=== PATIENT | female | born 1995 | race Caucasian/White ===

== ENCOUNTER 2017-08-24 21:26 | Inpatient (IN) | payer BC ==
[~2017-08-24] VITALS: Ht 170.2 cm; Wt 51.7 kg
[2017-08-24 21:57] VITALS: BP 101/68
[2017-08-24 22:15] LABS: BASOPHILS % (AUTO) 0.8 % (0.0-2.0); EOSINOPHILS % (AUTO) 0.6 % (0.0-3.0); HEMATOCRIT 40.8 % (37.0-47.0); LYMPHOCYTES % (AUTO) 23.1 % (20.0-45.0); MEAN CORPUSCULAR VOLUME 84 FL (80-99); MONOCYTES % (AUTO) 4.6 % (1.0-10.0); NEUTROPHILS % (AUTO) 70.8 % (45.0-75.0); PLATELET COUNT 263 K/UL (150-450); RED BLOOD COUNT 4.84 M/UL (4.20-5.40); RED CELL DISTRIBUTION WIDTH 10.8 % (11.6-14.8); WHITE BLOOD COUNT 10.7 K/UL (4.8-10.8)
[2017-08-24 22:19] LABS: ANION GAP 8 mmol/L (5-15); BLOOD UREA NITROGEN 12 mg/dL (7-18); CALCIUM 8.9 MG/DL (8.5-10.1); CARBON DIOXIDE 27 MMOL/L (21-32); CHLORIDE 105 MMOL/L (98-107); CREATININE 0.9 MG/DL (0.55-1.30); POTASSIUM 3.5 MMOL/L (3.5-5.1); SODIUM 140 MMOL/L (136-145)
[2017-08-24 22:24] LABS: ALANINE AMINOTRANSFERASE 26 U/L (12-78); ALBUMIN 3.8 G/DL (3.4-5.0); ALBUMIN/GLOBULIN RATIO 1.2 (1.0-2.7); ALKALINE PHOSPHATASE 73 U/L (46-116); ASPARTATE AMINO TRANSFERASE 18 U/L (15-37); BILIRUBIN,TOTAL 0.4 MG/DL (0.2-1.0)
--- NOTE | 2017-08-24 22:46 | Diagnostic Imaging Report ---
EXAM: CT Head Without Intravenous Contrast CLINICAL HISTORY: Seizure TECHNIQUE: Axial computed tomography images of the head/brain without intravenous contrast. CTDI is 0.15, 70.38 mGy and DLP is 1319 mGy-cm. One or more of the following dose reduction techniques were used: automated exposure control, adjustment of the mA and/or kV according to patient size, use of iterative reconstruction technique. COMPARISON: No relevant prior studies available. FINDINGS: Brain: Unremarkable. No acute hemorrhage. Normal canchola-white differentiation. No significant mass effect. Ventricles: Unremarkable. No ventriculomegaly. Bones/joints: Unremarkable. No acute fracture. Soft tissues: Unremarkable. Sinuses: Air-fluid level in the left maxillary sinus. Mastoid air cells: Unremarkable. IMPRESSION: No acute intracranial abnormality.
[2017-08-24 23:37] LABS: APPEARANCE,URINE SLIGHTLY CLOUDY; BILIRUBIN, URINE NEGATIVE (NEGATIVE); COLOR,URINE PALE YELLOW; GLUCOSE, URINE (UA) NEGATIVE (NEGATIVE); KETONES,URINE NEGATIVE (NEGATIVE); LEUKOCYTE ESTERASE ,URINE 3+ (NEGATIVE); NITRITE,URINE NEGATIVE (NEGATIVE); PH,URINE 6 (4.5-8.0); PROTEIN,URINE 1+ (NEGATIVE); UROBILINOGEN,URINE NORMAL MG/DL (0.0-1.0)
[2017-08-25] VITALS (7 sets, daily range): BP systolic 83–108; BP diastolic 44–59
[2017-08-25] MEDS ORDERED: Morphine Sulfate 4mg/ml Inj IVP ONE (00:30)
[2017-08-25] MEDS ORDERED: levETIRAcetam 500 MG in D5W 110 ML IV ONE (00:30)
--- NOTE | 2017-08-25 04:40 | Emergency Room Report ---
History of Present Illness General Chief Complaint: Seizure Source: Patient Present Illness HPI 21-year-old female presents ED for evaluation. Patient brought in by EMS status post seizure. Seizure was witnessed at her home by her friends. Friend states she fell forward and was seizing on the floor, foaming at the mouth. Lasted approximately 1 minute. Patient was initially very confused but is now more awake alert oriented. Patient denies history of seizures. States that she drank some alcohol and took some Benadryl. Denies any drug use. Patient states she has a headache, throbbing, 8 out of 10, nonradiating. Denies fevers or chills. Denies any neck stiffness. No other aggravating relieving factors. Denies any other associated symptoms Allergies: Coded Allergies: PENICILLINASE (Verified Allergy, Unknown, 08/24/17) Patient History Past Medical History: asthma Past Surgical History: none Pertinent Family History: none Social History: Denies: smoking, alcohol use, drug use Now: No Immunizations: UTD Reviewed Nursing Documentation: PMH: Agreed; PSxH: Agreed Nursing Documentation-PMH Past Medical History: No History, Except For Hx Cardiac Problems: No Hx Asthma: Yes Hx Cancer: No Hx Gastrointestinal Problems: No Hx Neurological Problems: No Hx Seizures: No Review of Systems All Other Systems: negative except mentioned in HPI Physical Exam Vital Signs Date Time Temp Pulse Resp B/P (MAP) Pulse Ox O2 Delivery O2 Flow Rate FiO2 08/24/17 21:26 98.1 98 18 102/69 99 Room Air 98.1 Sp02 EP Interpretation: reviewed, normal General Appearance: no apparent distress, alert, GCS 15, non-toxic Head: normocephalic, atraumatic Eyes: bilateral eye normal inspection, bilateral eye PERRL ENT: hearing grossly normal, normal pharynx, no angioedema, normal voice Neck: full range of motion, supple/symm/no masses Respiratory: chest non-tender, lungs clear, normal breath sounds, speaking full sentences Cardiovascular #1: regular rate, rhythm, no edema Cardiovascular #2: 2+ carotid (R), 2+ carotid (L), 2+ radial (R), 2+ radial (L) , 2+ dorsalis pedis (R), 2+ dorsalis pedis (L) Gastrointestinal: normal bowel sounds, non tender, soft, non-distended, no guarding, no rebound Rectal: deferred Genitourinary: normal inspection, no CVA tenderness Musculoskeletal: back normal, gait/station normal, normal range of motion, non- tender Neurologic: alert, oriented x3, responsive, motor strength/tone normal, sensory intact, speech normal Psychiatric: judgement/insight normal, memory normal, mood/affect normal, no suicidal/homicidal ideation Reflexes: 3+ bicep (R), 3+ bicep (L), 3+ tricep (R), 3+ tricep (L), 3+ knee (R) , 3+ knee (L) Skin: normal color, no rash, warm/dry, well hydrated Lymphatic: no adenopathy Medical Decision Making Diagnostic Impression: Primary Impression: New onset seizure Additional Impression: UTI (urinary tract infection) Qualified Codes: N39.0 - Urinary tract infection, site not specified ER Course Hospital Course 21-year-old F presents to ED status post seizure. Differential diagnosis includes- breakthrough seizure, alcohol abuse, noncompliance with medication Clinical course Patient placed on stretcher. Initial history and physical I ordered labs, IV fluids, CT brain Labs-electrolytes okay, leukocytosis noted, hemoglobin/hematocrit stable. UA + bacteria, Utox engative EKG - NSR, no acute ischemic changes interpreted by me CT Brain ok I discussed findings with patient. She states that there is a family history of epilepsy. Patient states she feels very weak still still has a headache. Given loading dose of Keppra. given IV abx Case discussed with Dr. Baird and he agreed to accept the patient to his service for further care and support. i. I feel this is a highly complex case requiring extensive working including EKG/Rhythm strip, Xray/CT/US, Blood/urine lab work, repeat exams while in ED, and administration of strong opiates/narcotics for pain control, admission to hospital or close patient follow up. Diagnosis - new onset seizure, UTI admitted to telemetry in serious condition Labs Test 08/24/17 21:40 08/24/17 23:15 White Blood Count 10.7 K/UL (4.8-10.8) Red Blood Count 4.84 M/UL (4.20-5.40) Hemoglobin 14.0 G/DL (12.0-16.0) Hematocrit 40.8 % (37.0-47.0) Mean Corpuscular Volume 84 FL (80-99) Mean Corpuscular Hemoglobin 29.0 PG (27.0-31.0) Mean Corpuscular Hemoglobin Concent 34.4 G/DL (32.0-36.0) Red Cell Distribution Width 10.8 % (11.6-14.8) Platelet Count 263 K/UL (150-450) Mean Platelet Volume 7.1 FL (6.5-10.1) Neutrophils (%) (Auto) 70.8 % (45.0-75.0) Lymphocytes (%) (Auto) 23.1 % (20.0-45.0) Monocytes (%) (Auto) 4.6 % (1.0-10.0) Eosinophils (%) (Auto) 0.6 % (0.0-3.0) Basophils (%) (Auto) 0.8 % (0.0-2.0) Sodium Level 140 MMOL/L (136-145) Potassium Level 3.5 MMOL/L (3.5-5.1) Chloride Level 105 MMOL/L (98-107) Carbon Dioxide Level 27 MMOL/L (21-32) Anion Gap 8 mmol/L (5-15) Blood Urea Nitrogen 12 mg/dL (7-18) Creatinine 0.9 MG/DL (0.55-1.30) Estimat Glomerular Filtration Rate > 60 mL/min (>60) Glucose Level 89 MG/DL (74-106) Calcium Level 8.9 MG/DL (8.5-10.1) Total Bilirubin 0.4 MG/DL (0.2-1.0) Aspartate Amino Transf (AST/SGOT) 18 U/L (15-37) Alanine Aminotransferase (ALT/SGPT) 26 U/L (12-78) Alkaline Phosphatase 73 U/L (46-116) Total Protein 6.9 G/DL (6.4-8.2) Albumin 3.8 G/DL (3.4-5.0) Globulin 3.1 g/dL Albumin/Globulin Ratio 1.2 (1.0-2.7) Salicylates Level 0.4 ug/mL (2.8-20) Acetaminophen Level < 2 MCG/ML (10-30) Serum Alcohol < 3 mg/dL Urine Color Pale yellow Urine Appearance Slightly cloudy Urine pH 6 (4.5-8.0) Urine Specific [place] 1.015 (1.005-1.035) Urine Protein 1+ (NEGATIVE) Urine Glucose (UA) Negative (NEGATIVE) Urine Ketones Negative (NEGATIVE) Urine Occult Blood 2+ (NEGATIVE) Urine Nitrite Negative (NEGATIVE) Urine Bilirubin Negative (NEGATIVE) Urine Urobilinogen Normal MG/DL (0.0-1.0) Urine Leukocyte Esterase 3+ (NEGATIVE) Urine RBC 2-4 /HPF (0 - 2) Urine WBC 15-20 /HPF (0 - 2) Urine Squamous Epithelial Cells Moderate /LPF (NONE/OCC) Urine Bacteria Few /HPF (NONE) Urine Yeast Few /HPF (NONE) Urine HCG, Qualitative Negative (NEGATIVE) Urine Opiates Screen Negative (NEGATIVE) Urine Barbiturates Screen Negative (NEGATIVE) Phencyclidine (PCP) Screen Negative (NEGATIVE) Urine Amphetamines Screen Negative (NEGATIVE) Urine Benzodiazepines Screen Negative (NEGATIVE) Urine Cocaine Screen Negative (NEGATIVE) Urine Marijuana (THC) Screen Negative (NEGATIVE) EKG Diagnostic Results Rate: normal Rhythm: NSR ST Segments: no acute changes ASA given to the pt in ED: No Rhythm Strip Diag. Results EP Interpretation: yes Rhythm: NSR, no PVC's, no ectopy CT/MRI/US Diagnostic Results CT/MRI/US Diagnostic Results : Imaging Test Ordered: CT Head Impression no acute process Last Vital Signs Date Time Temp Pulse Resp B/P (MAP) Pulse Ox O2 Delivery O2 Flow Rate FiO2 08/25/17 02:30 98.1 79 15 94/59 99 Room Air 98.1 Status: improved Disposition: ADMITTED INPATIENT Condition: Serious Scripts No Active Prescriptions or Reported Meds Referrals: NON PHYSICIAN (PCP) aSroj Aguila MD August 25, 2017 04:40
[2017-08-25] MEDS ORDERED: Gadavist 7.5mMol/7.5ml vial IV PRN (06:45)
[2017-08-25 08:33] LABS: BASOPHILS % (AUTO) 0.4 % (0.0-2.0); EOSINOPHILS % (AUTO) 0.8 % (0.0-3.0); HEMATOCRIT 35.4 % (37.0-47.0); HEMOGLOBIN 11.9 G/DL (12.0-16.0); LYMPHOCYTES % (AUTO) 20.1 % (20.0-45.0); MEAN CORPUSCULAR VOLUME 86 FL (80-99); NEUTROPHILS % (AUTO) 72.7 % (45.0-75.0); PLATELET COUNT 226 K/UL (150-450); RED CELL DISTRIBUTION WIDTH 11.1 % (11.6-14.8); WHITE BLOOD COUNT 11.8 K/UL (4.8-10.8)
[2017-08-25 08:51] LABS: ALANINE AMINOTRANSFERASE 20 U/L (12-78); ALBUMIN 3.1 G/DL (3.4-5.0); ALBUMIN/GLOBULIN RATIO 1.2 (1.0-2.7); ALKALINE PHOSPHATASE 63 U/L (46-116); ANION GAP 5 mmol/L (5-15); ASPARTATE AMINO TRANSFERASE 16 U/L (15-37); BILIRUBIN,TOTAL 0.5 MG/DL (0.2-1.0); BLOOD UREA NITROGEN 13 mg/dL (7-18); CALCIUM 8.5 MG/DL (8.5-10.1); CARBON DIOXIDE 28 MMOL/L (21-32); CHLORIDE 109 MMOL/L (98-107); CREATININE 0.8 MG/DL (0.55-1.30); POTASSIUM 3.6 MMOL/L (3.5-5.1); SODIUM 142 MMOL/L (136-145)
[2017-08-25] MEDS: Heparin 5000 units/ml inj SUBQ SCH ×3 (09:00→20:10)
[2017-08-25] MEDS: Cefepime HCl 1 GM in D5W 110 ML IVPB SCH ×2 (09:22→20:13)
--- NOTE | 2017-08-25 10:23 | History & Physical ---
History and Physical History & Physicial 21-year-old female presents with status post seizure. Seizure was witnessed at her home by her friends. Friend states she fell forward and was seizing on the floor, foaming at the mouth. Lasted approximately 1 minute. Patient was initially very confused but regained normal LOC. Patient denies history of seizures. States that she drank some alcohol and took some Benadryl that night. she has a headache, throbbing, 8 out of 10, nonradiating in the ER and persists. Denies fevers or chills. Denies any neck stiffness. No other aggravating relieving factors. Denies any other associated symptoms Allergies: PENICILLINASE (Verified Allergy, Unknown, 08/24/17) Past Medical History: asthma Past Surgical History: none Pertinent Family History: none Social History: Denies: smoking, alcohol use, drug use Reviewed of systems: otherwise negative Physical WDWN NAD clear breath sounds bilaterally without rhonchi or wheeze [id number] without MRG NABS nontender no HSM no CCE nonfocal Laboratory Tests Test 08/24/17 21:40 08/24/17 23:15 08/25/17 08:10 White Blood Count 10.7 K/UL (4.8-10.8) 11.8 K/UL (4.8-10.8) H Red Blood Count 4.84 M/UL (4.20-5.40) 4.10 M/UL (4.20-5.40) L Hemoglobin 14.0 G/DL (12.0-16.0) 11.9 G/DL (12.0-16.0) L Hematocrit 40.8 % (37.0-47.0) 35.4 % (37.0-47.0) L Mean Corpuscular Volume 84 FL (80-99) 86 FL (80-99) Mean Corpuscular Hemoglobin 29.0 PG (27.0-31.0) 29.2 PG (27.0-31.0) Mean Corpuscular Hemoglobin Concent 34.4 G/DL (32.0-36.0) 33.8 G/DL (32.0-36.0) Red Cell Distribution Width 10.8 % (11.6-14.8) L 11.1 % (11.6-14.8) L Platelet Count 263 K/UL (150-450) 226 K/UL (150-450) Mean Platelet Volume 7.1 FL (6.5-10.1) 7.3 FL (6.5-10.1) Neutrophils (%) (Auto) 70.8 % (45.0-75.0) 72.7 % (45.0-75.0) Lymphocytes (%) (Auto) 23.1 % (20.0-45.0) 20.1 % (20.0-45.0) Monocytes (%) (Auto) 4.6 % (1.0-10.0) 6.0 % (1.0-10.0) Eosinophils (%) (Auto) 0.6 % (0.0-3.0) 0.8 % (0.0-3.0) Basophils (%) (Auto) 0.8 % (0.0-2.0) 0.4 % (0.0-2.0) Sodium Level 140 MMOL/L (136-145) 142 MMOL/L (136-145) Potassium Level 3.5 MMOL/L (3.5-5.1) 3.6 MMOL/L (3.5-5.1) Chloride Level 105 MMOL/L (98-107) 109 MMOL/L (98-107) H Carbon Dioxide Level 27 MMOL/L (21-32) 28 MMOL/L (21-32) Anion Gap 8 mmol/L (5-15) 5 mmol/L (5-15) Blood Urea Nitrogen 12 mg/dL (7-18) 13 mg/dL (7-18) Creatinine 0.9 MG/DL (0.55-1.30) 0.8 MG/DL (0.55-1.30) Estimat Glomerular Filtration Rate > 60 mL/min (>60) > 60 mL/min (>60) Glucose Level 89 MG/DL (74-106) 84 MG/DL (74-106) Calcium Level 8.9 MG/DL (8.5-10.1) 8.5 MG/DL (8.5-10.1) Total Bilirubin 0.4 MG/DL (0.2-1.0) 0.5 MG/DL (0.2-1.0) Aspartate Amino Transf (AST/SGOT) 18 U/L (15-37) 16 U/L (15-37) Alanine Aminotransferase (ALT/SGPT) 26 U/L (12-78) 20 U/L (12-78) Alkaline Phosphatase 73 U/L (46-116) 63 U/L (46-116) Total Protein 6.9 G/DL (6.4-8.2) 5.7 G/DL (6.4-8.2) L Albumin 3.8 G/DL (3.4-5.0) 3.1 G/DL (3.4-5.0) L Globulin 3.1 g/dL 2.6 g/dL Albumin/Globulin Ratio 1.2 (1.0-2.7) 1.2 (1.0-2.7) Salicylates Level 0.4 ug/mL (2.8-20) L Acetaminophen Level < 2 MCG/ML (10-30) L Serum Alcohol < 3 mg/dL Urine Color Pale yellow Urine Appearance Slightly cloudy Urine pH 6 (4.5-8.0) Urine Specific [place] 1.015 (1.005-1.035) Urine Protein 1+ (NEGATIVE) H Urine Glucose (UA) Negative (NEGATIVE) Urine Ketones Negative (NEGATIVE) Urine Occult Blood 2+ (NEGATIVE) H Urine Nitrite Negative (NEGATIVE) Urine Bilirubin Negative (NEGATIVE) Urine Urobilinogen Normal MG/DL (0.0-1.0) Urine Leukocyte Esterase 3+ (NEGATIVE) H Urine RBC 2-4 /HPF (0 - 2) H Urine WBC 15-20 /HPF (0 - 2) H Urine Squamous Epithelial Cells Moderate /LPF (NONE/OCC) H Urine Bacteria Few /HPF (NONE) Urine Yeast Few /HPF (NONE) H Urine HCG, Qualitative Negative (NEGATIVE) Urine Opiates Screen Negative (NEGATIVE) Urine Barbiturates Screen Negative (NEGATIVE) Phencyclidine (PCP) Screen Negative (NEGATIVE) Urine Amphetamines Screen Negative (NEGATIVE) Urine Benzodiazepines Screen Negative (NEGATIVE) Urine Cocaine Screen Negative (NEGATIVE) Urine Marijuana (THC) Screen Negative (NEGATIVE) IMPRESSION new onset seizure asthma PLAN keppra EEG MRI brain seizure precautions impression, plan, and exam edited and reviewed in detail care discussed with Edmond Powell MD August 25, 2017 10:23
[2017-08-25] MEDS ORDERED: Tubing IV Secondary IV ONE (15:31)
--- NOTE | 2017-08-25 15:45 | Diagnostic Imaging Report ---
EXAM: MR Head Without and With Intravenous Contrast CLINICAL HISTORY: SZ TECHNIQUE: Magnetic resonance images of the head/brain without and with intravenous contrast in multiple planes. COMPARISON: CT head 08/24/17 FINDINGS: Brain: A few scattered right frontal white matter T2 hyperintensities are nonspecific. No other abnormal signal. No hemorrhage. No acute infarct. No mass or fluid collections. No abnormal enhancement. Ventricles: Unremarkable. No ventriculomegaly. Bones/joints: Unremarkable. Sinuses: Small fluid level in the left maxillary sinus. May be acute sinusitis. Mastoid air cells: Unremarkable as visualized. No mastoid effusion. Orbits: Unremarkable as visualized. IMPRESSION: 1. A few scattered right frontal white matter T2 hyperintensities are nonspecific and likely of no clinical significance. 2. No acute intracranial abnormality. 3. Small fluid level in the left maxillary sinus. May be acute sinusitis.
[2017-08-26] VITALS: BP_SYST 82; BP_SYST 92; BP_DIAS 47; BP_DIAS 53
[2017-08-26 04:00] VITALS: BP 94/53
[2017-08-26] MEDS: Norco 5mg/325mg tab ORAL PRN ×3 (05:48→20:36)
--- NOTE | 2017-08-26 07:10 | General Progress Note ---
Assessment/Plan Assessment/Plan IMPRESSION new onset seizure possible due to etoh and benadryl use asthma headaches sinusitis PLAN keppra as is EEG MRI brain noted seizure precautions NO DRIVING WILL SEND LETTER TO [facility] AND WILL NEED TO SEE NEURO PRIOR TO RESUMPTION OF DRIVING impression, plan, and exam edited and reviewed in detail care discussed with RN Subjective Allergies: Coded Allergies: PENICILLINASE (Verified Allergy, Unknown, 08/24/17) Subjective persistent headaches no seizure MRI negative Objective Last 24 Hour Vital Signs Date Time Temp Pulse Resp B/P (MAP) Pulse Ox O2 Delivery O2 Flow Rate FiO2 08/26/17 06:47 98.1 08/26/17 05:48 98.1 08/26/17 04:00 64 08/26/17 04:00 97.5 69 18 94/53 98 Room Air 97.5 08/26/17 01:18 98.1 08/26/17 00:19 98.1 08/26/17 00:00 64 08/26/17 00:00 96.8 71 21 82/47 98 Room Air 96.8 08/25/17 20:00 80 08/25/17 20:00 98.1 73 20 95/58 97 Room Air 98.1 08/25/17 16:00 61 08/25/17 16:00 97.5 61 18 91/52 95 Room Air 97.5 08/25/17 12:00 79 08/25/17 12:00 97.9 82 18 92/53 95 Room Air 97.9 08/25/17 08:00 63 08/25/17 08:00 97.4 66 18 83/51 98 Room Air 97.4 Intake and Output 08/25/17 08/26/17 19:00 07:00 Intake Total 480 ml 120 ml Balance 480 ml 120 ml Intake Oral 480 ml 120 ml # Voids 4 1 Laboratory Tests 08/25/17 08:10: White Blood Count 11.8H, Red Blood Count 4.10L, Hemoglobin 11.9L, Hematocrit 35.4L, Mean Corpuscular Volume 86, Mean Corpuscular Hemoglobin 29.2, Mean Corpuscular Hemoglobin Concent 33.8, Red Cell Distribution Width 11.1L, Platelet Count 226, Mean Platelet Volume 7.3, Neutrophils (%) (Auto) 72.7, Lymphocytes (%) (Auto) 20.1, Monocytes (%) (Auto) 6.0, Eosinophils (%) (Auto) 0.8, Basophils (%) (Auto) 0.4, Sodium Level 142, Potassium Level 3.6, Chloride Level 109H, Carbon Dioxide Level 28, Anion Gap 5, Blood Urea Nitrogen 13, Creatinine 0.8, Estimat Glomerular Filtration Rate > 60, Glucose Level 84, Calcium Level 8.5, Total Bilirubin 0.5, Aspartate Amino Transf (AST/SGOT) 16, Alanine Aminotransferase (ALT/SGPT) 20, Alkaline Phosphatase 63, Total Protein 5.7L, Albumin 3.1L, Globulin 2.6, Albumin/Globulin Ratio 1.2 Height (Feet): 5 Height (Inches): 7.00 Weight (Pounds): 114 Objective WDWN NAD clear breath sounds bilaterally without rhonchi or wheeze [id number] without MRG NABS nontender no HSM no CCE nonfocal alert and oriented x 3 Edmond Baird MD August 26, 2017 07:10
[2017-08-26 08:00] VITALS: BP 96/59
[2017-08-26] MEDS: Cefepime HCl 1 GM in D5W 110 ML IVPB SCH ×2 (08:43→21:17)
[2017-08-26] MEDS: Heparin 5000 units/ml inj SUBQ SCH ×2 (08:48→21:00)
[2017-08-26 12:00] VITALS: BP 98/60
--- NOTE | 2017-08-26 14:31 | Consultation ---
Consult Note Consult Note NEUROLOGY CONSULTATION: Full note dictated #[id number] 21 y/o, RH, CF with PH of ovarian cysts, asthma and anxiety for which she takes Xanax daily. 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 She was then confused for a few minutes. She was brought to the [facility] ER and has since been admitted. ON EXAM: Normal. IMPRESSION: New onset single GTC seizure with no aura. CT of brain Normal MRI of brain WO/W contrast Normal. EEG normal in awake/drowsy/Sleep states. Labs with acute UTI. Possible single provoked seizure due to multiple factors. Cardiac monitoring has revealed questionable arrhythmia. REC: Seizure hygiene. Anti-seizure medicine not indicated at this time. Cardiac evaluation. If D/C follow up in office in 6-8 weeks. Yanira Rogers M.D., M.S.P.H. YANIRA ROGERS August 26, 2017 14:31
[2017-08-26 16:00] VITALS: BP 93/54
--- NOTE | 2017-08-26 16:45 | Electroencephalogram ---
DATE OF PROCEDURE: 08/25/2017 EEG REPORT HISTORY: This EEG was performed on a 21-year-old lady with a history of new onset single generalized seizure. The purpose of this EEG was to evaluate the patient for the type of seizure disorder. TECHNICAL NOTE: This EEG was performed on a Head Held High Digital Acquisition Unit with electrodes placed on the scalp according to the International 10-20 system. [id number] and [id number] montages were used. The EEG was technically satisfactory and was performed in the awake, drowsy and sleep states. OBSERVATIONS: In the best awake state, the background activity consisted of 9-10 Hz, posteriorly predominant, well-developed, alpha waveforms, which attenuated on eye opening. Drowsiness was characterized by dissolution of the alpha rhythm and the appearance of slow frequencies in the 4-5 Hz theta range. Stage II sleep was characterized by further slowing of the background in the delta and theta range, the presence of vertex waves, and 16 Hz sleep spindles. Photic stimulation was performed at various different frequencies and produced a normal driving response. Hyperventilation was performed for 2.5 minutes with a relatively good effort and produced no abnormalities. No focal abnormalities or epileptiform discharges were seen. IMPRESSION: Normal awake, drowsy, and stage II sleep EEG. COMMENT: A normal EEG does not rule out a seizure disorder. Solitario Rogers M.D., M.S.P.H. DR: DEREK JOB#: [id number] [facility]
--- NOTE | 2017-08-26 18:00 | Consultation ---
DATE OF CONSULTATION: 08/26/2017 NEUROLOGY CONSULTATION CONSULTING PHYSICIAN: Solitario Rogers M.D. REQUESTING PHYSICIAN: Edmond Baird M.D. HISTORY: Ms. Kathryn Caldera is a 21-year-old, right-handed, lady, who does have a past history of ovarian cysts with the last time that a cyst ruptured approximately 7 months ago, asthma and anxiety for which she takes Xanax daily. She had stopped taking her Xanax for approximately 2 days. 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 When approximately an hour after that, she suddenly became unresponsive, loss consciousness, fell down, had generalized jerking movements of her body lasting for about a minute, and had "foaming at the mouth" and had bitten her tongue. Following that, she regained consciousness within a few minutes, but was confused and disoriented for a few more minutes. She was brought into the [facility] Emergency Room and has since been admitted. She has had no further episodes of loss of consciousness or seizures since then and feels relatively well at this point in time. She denies any weakness on one side or the other, numbness on one side or the other, problems with speech, problems with language, problems with vision, problems with memory, or any other neurological symptoms following the event. She also denies any unusual symptoms prior to that. She denies a prior history of seizures. PAST MEDICAL HISTORY: Significant for ovarian cyst, asthma, and anxiety. FAMILY HISTORY: Nothing significant with no family history of neurological illnesses, except for her grandmother, who had a seizure disorder, which is poorly described. PERSONAL HISTORY: Home: She lives with a roommate. Work: She works as a model and writes and performs music. Habits: She smokes a few cigarettes daily. She consumes approximately 2 alcoholic drinks in a week. She denies the use of any illicit drugs. MEDICATIONS PRIOR TO ADMISSION: Xanax, which she had missed for 2 days and Benadryl p.r.n. PHYSICAL EXAMINATION: GENERAL: She is a well-developed, well-nourished, pleasant, lady, lying in bed, in no acute distress. VITAL SIGNS: Pulse 68 per minute, blood pressure 98/60mmHg, respirations 18 per minute, and temperature 97.9 degrees Fahrenheit. HEAD: Normocephalic and atraumatic. EENT: Examination benign except for bite vasquez on the lateral aspect of her tongue on the left side. NECK: No neck rigidity was observed. NEUROLOGIC EXAMINATION: MENTAL STATUS EXAMINATION: She was awake and alert. She was oriented to person, place, and time. She was able to recall 3/3 words immediately after 1 minute and after 3 minutes. She was able to remember presidents, Trump and Obama, but could not remember presidents prior to that. Her mathematical skills were good. Her visuospatial function was preserved. SPEECH: She had no dysarthria. LANGUAGE: She had no aphasia. CRANIAL NERVE EXAMINATION: II: The visual dominique were intact on confrontation testing. III, IV & : External ocular movements are full and the pupils 3 mm in diameter, equal, round, regular, and reactive to light. V: She had normal facial sensations and the temporales, masseters, and pterygoids functioned normally. VII: She had normal facial expressions and no facial asymmetry. VIII: She was able to hear well bilaterally and had no nystagmus. IX: The palate moved symmetrically on phonation. X: She had no hoarseness of voice. XI: The sternocleidomastoids and trapezii functioned normally. XII: The tongue was in the midline without any fasciculations or atrophy. MOTOR SYSTEM: The tone was normal in all four extremities. Examination of muscle mass revealed no focal wasting. Examination of power revealed grade 5/5 power. SENSORY EXAMINATION: She had intact sensations to pinprick, light touch, and graphesthesia. COORDINATION: She performed well on fzmmcd-cc-qins and cric-hu-auxw testing. The Romberg test was negative. REFLEXES: 2+ and bilaterally symmetrical at the biceps, triceps, brachioradialis, and ankles. 2++ at both knees. Her plantar responses were flexor bilaterally. STANCE: She had a normal stance. GAIT: She had a normal regular gait. DIAGNOSTIC IMPRESSION: 1. Ms. Kathryn Caldera is a 21-year-old, right-handed, lady, who does have a past history of ovarian cyst, asthma and anxiety for which she takes Xanax regularly. 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 This was not preceded by any aura. 2. On neurological examination, at this time, she does have mild problems with memory, but no other neurological dysfunction. 3. Her latest laboratory data revealed that her WBC count is elevated to 11,800. She is mildly anemic with a hemoglobin of 11.9. Her chemistry panel is relatively benign. Her urinalysis reveals 3+ leukocyte esterase, 2-4 red blood cells, and 15-20 white blood cells per high-power field, and her urine toxicology screen is negative and her serum alcohol level is also <3. 4. A CT scan of the brain without contrast was normal. 5. An MRI scan of the brain without and with gadolinium was also normal. 6. An EEG performed on 08/25/2017 was normal in the awake, drowsy, and sleep states. 7. The patient's history, neurological examination, imaging studies, EEG, and laboratory data are most compatible with a possible single provoked seizure due to a multitude of factors including stopping the use of Xanax, using alcohol and Benadryl, having a urinary tract infection and being under an undue amount of stress. 8. Since the patient has been in the hospital, her cardiac monitoring has revealed some questionable arrhythmia RECOMMENDATIONS: 1. Agree with management thus far. 2. The patient was given an explanation of the above mentioned findings. 3. She was instructed on the essentials of seizure hygiene: That is getting enough sleep, eating at regular intervals, not getting dehydrated, staying away from all alcohol and illicit drugs, and taking care of any infectious process as soon as it starts. 4. At this point in time, there is no indication to start the patient on an antiseizure medicine. 5. The patient's possible cardiac arrhythmia should be evaluated by entry level project engineer. 6. I would like to see the patient in followup in my office in approximately 6 to 8 weeks from now. Thank you for entrusting me with the care of Ms. Caldera I shall follow her with you. Solitario K. Sue, M.D., M.S.P.H. DR: DEREK JOB#: [id number] MTDD
--- NOTE | 2017-08-26 19:45 | Consultation ---
DATE OF CONSULTATION: 08/26/2017 CARDIOLOGY CONSULTATION NOTE CONSULTING PHYSICIAN: Chad Lentz M.D. REASON FOR CONSULTATION: Heart block. HISTORY OF PRESENT ILLNESS: This 21-year-old female has no prior history of cardiovascular disease. She presented to the emergency room early yesterday after a seizure episode. The patient apparently takes Xanax daily for anxiety. She missed two days of her medication, was under a lot of stress, consumed a shot of alcohol and took several Benadryl tablets. She developed unresponsive state falling forward with generalized jerky movements for about a minute with foaming at the mouth. She also bit her tongue. She had some postictal confusion. She was admitted yesterday and has not had any recurrent seizures. Her workup today includes a CT of the brain and MRI of the brain, both normal. EEG normal. Labs only notable for urinary tract infection. However, of cardiac concern is that while being monitored, she had one episode of a second-degree heart block type 1 (Wenckebach), this was asymptomatic. PAST MEDICAL HISTORY: Ovarian cyst, asthma, and anxiety. MEDICATIONS: Prior to admission, reviewed and reconciled. ALLERGIES: Penicillin. SOCIAL HISTORY: Denies smoking, alcohol abuse, or substance abuse. FAMILY HISTORY: Noncontributory. REVIEW OF SYSTEMS: Otherwise negative. PHYSICAL EXAMINATION: GENERAL: Well developed, well nourished, in no distress. VITAL SIGNS: Blood pressure 93/54, pulse 74, respirations 18, afebrile, room air oxygen sats are 100%. NECK: Supple. LUNGS: Clear. CARDIAC: Regular. Normal S1 and S2 with no murmur. ABDOMEN: Soft. EXTREMITIES: No edema. DIAGNOSTIC DATA: EKG revealed sinus rhythm and no abnormalities. IMPRESSION: 1. Seizure disorder with no recurrence. Per neurologist, likely due to withdrawal of benzodiazepine and associated medications ingested. 2. Asymptomatic single episode of second-degree type 1 atrioventricular block. PLAN: Check echocardiogram with bubble study. If no signs of structural heart disease, then no additional cardiovascular workup is required. Chad Lentz M.D. DR: Lois JOB#: [id number] CC:
[2017-08-26 19:53] VITALS: BP 99/55
[2017-08-27] VITALS: BP 92/53
[2017-08-27 04:00] VITALS: BP 94/55
[2017-08-27 08:00] VITALS: BP 95/57
--- NOTE | 2017-08-27 08:16 | General Progress Note ---
Assessment/Plan Assessment/Plan IMPRESSION new onset seizure possible due to etoh and benadryl use asthma headaches sinusitis PLAN dc keshira seizure precautions cleared by neuro with outpatient follow up impression, plan, and exam edited and reviewed in detail care discussed with RN Subjective Allergies: Coded Allergies: PENICILLINASE (Verified Allergy, Unknown, 08/24/17) Subjective some headaches no seizure activity MRI negative Objective Last 24 Hour Vital Signs Date Time Temp Pulse Resp B/P (MAP) Pulse Ox O2 Delivery O2 Flow Rate FiO2 08/27/17 04:00 60 08/27/17 04:00 97.0 72 20 94/55 98 Room Air 97.0 08/27/17 00:00 97.5 76 20 92/53 98 Room Air 97.5 08/27/17 00:00 63 08/26/17 23:22 97.9 08/26/17 22:23 97.9 08/26/17 21:35 97.9 08/26/17 20:00 79 08/26/17 19:53 97.9 75 20 99/55 98 Room Air 97.9 08/26/17 16:00 97.9 74 18 93/54 100 Room Air 97.9 08/26/17 16:00 110 08/26/17 12:00 97.9 68 18 98/60 97 Room Air 97.9 08/26/17 12:00 79 Intake and Output 08/26/17 08/27/17 19:00 07:00 Intake Total 1071 ml Balance 1071 ml Intake Oral 360 ml IV Total 711 ml # Voids 3 3 Height (Feet): 5 Height (Inches): 7.00 Weight (Pounds): 114 Objective WDWN NAD clear breath sounds bilaterally without rhonchi or wheeze [id number] without MRG NABS nontender no HSM no CCE nonfocal alert and oriented x 3 Edmond Baird MD August 27, 2017 08:16
[2017-08-27] MEDS: Heparin 5000 units/ml inj SUBQ SCH (08:29)
[2017-08-27] MEDS: Cefepime HCl 1 GM in D5W 110 ML IVPB SCH (08:29)
[2017-08-27 09:07] VITALS: BP 95/57
--- NOTE | 2017-08-27 09:10 | Neurology Progress Note ---
Interim History Interim History Interim History Ms. Caldera feels well. She had had no further seizures. The mind is clear. The strength is excellent. She slept well last night. She has not noticed any new neurologic symptoms. She is eager to go home. Review of Systems Neuro Review of Systems Benign. Objective Physical Exam Last Vital Signs Date Time Temp Pulse Resp B/P (MAP) Pulse Ox O2 Delivery O2 Flow Rate FiO2 08/27/17 04:00 60 08/27/17 04:00 97.0 20 94/55 98 Room Air 97.0 Neurologic Exam Objective PHYSICAL EXAMINATION: GENERAL: She is a well-developed, well-nourished, pleasant, lady, lying in bed, in no acute distress. HEAD: Normocephalic and atraumatic. EENT: Examination benign except for bite vasquez on the lateral aspect of her tongue on the left side. NECK: No neck rigidity was observed. NEUROLOGIC EXAMINATION: MENTAL STATUS EXAMINATION: She was awake and alert. She was oriented to person, place, and time. She was able to recall 3/3 words immediately after 1 minute and after 3 minutes. She was able to remember presidents, Trump and Obama, but could not remember presidents prior to that. Her mathematical skills were good. Her visuospatial function was preserved. SPEECH: She had no dysarthria. LANGUAGE: She had no aphasia. CRANIAL NERVE EXAMINATION: II: The visual dominique were intact on confrontation testing. III, IV & : External ocular movements are full and the pupils 3 mm in diameter, equal, round, regular, and reactive to light. V: She had normal facial sensations and the temporales, masseters, and pterygoids functioned normally. VII: She had normal facial expressions and no facial asymmetry. VIII: She was able to hear well bilaterally and had no nystagmus. IX: The palate moved symmetrically on phonation. X: She had no hoarseness of voice. XI: The sternocleidomastoids and trapezii functioned normally. XII: The tongue was in the midline without any fasciculations or atrophy. MOTOR SYSTEM: The tone was normal in all four extremities. Examination of muscle mass revealed no focal wasting. Examination of power revealed grade 5/5 power. SENSORY EXAMINATION: She had intact sensations to pinprick, light touch, and graphesthesia. COORDINATION: She performed well on edixzw-ab-jilp and aljb-se-fysy testing. The Romberg test was negative. REFLEXES: 2+ and bilaterally symmetrical at the biceps, triceps, brachioradialis , and ankles. 2++ at both knees. Her plantar responses were flexor bilaterally. STANCE: She had a normal stance. GAIT: She had a normal regular gait. Impression/Recommendations Diagnostic Impression 1. Ms. Kathryn Caldera is a 21-year-old, right-handed, lady, who does have a past history of ovarian cyst, asthma and anxiety for which she takes Xanax regularly. 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 This was not preceded by any aura. 2. She feels well. She had had no further seizures. The mind is clear. The strength is excellent. She slept well last night. She has not noticed any new neurologic symptoms. 3. On neurological examination, at this time, she does have mild problems with memory, but no other neurological dysfunction. 4. Her latest laboratory data revealed that her WBC count is elevated to 11, 800. She is mildly anemic with a hemoglobin of 11.9. Her chemistry panel is relatively benign. Her urinalysis reveals 3+ leukocyte esterase, 2-4 red blood cells, and 15-20 white blood cells per high-power field, and her urine toxicology screen is negative and her serum alcohol level is also <3. 5. A CT scan of the brain without contrast was normal. 6. An MRI scan of the brain without and with gadolinium was also normal. 7. An EEG performed on 08/25/2017 was normal in the awake, drowsy, and sleep states. 8. The patient's history, neurological examination, imaging studies, EEG, and laboratory data are most compatible with a possible single provoked seizure due to a multitude of factors including stopping the use of Xanax, using alcohol and Benadryl, having a urinary tract infection and being under an undue amount of stress. 9. Since the patient has been in the hospital, her cardiac monitoring has revealed an arrhythmia. She was seen for this by Dr. Chad Lentz who diagnosed her as having "an asymptomatic single episode of second-degree type 1 atrioventricular block. Her recommended an echocardiogram with bubble study, and if no signs of structural heart disease , then no additional cardiovascular workup is required." 10. She feels very well and close to her normal self again. Recommendations 1. Continue present management. 2. She was again given an explanation of the above mentioned findings. 3. She was again instructed on the essentials of seizure hygiene: That is getting enough sleep, eating at regular intervals, not getting dehydrated, staying away from all alcohol and illicit drugs, and taking care of any infectious process as soon as it starts. 4. At this point in time, there is no indication to start the patient on an antiseizure medicine. 5. Cardiac work-up as per Dr Lentz. 6. I would like to see the patient in followup in my office in approximately 6 to 8 weeks from now. Yanira Gonzalez M.D., M.S.P.H. YANIRA GONZALEZ August 27, 2017 09:10
--- NOTE | 2017-08-27 13:23 | Cardiology Report ---
APPROVED REPORT EXAM: Two-dimensional and M-mode echocardiogram with Doppler and color Doppler. INDICATION 2nd degree heart block M-Mode DIMENSIONS IVSd0.6 (0.7-1.1cm)Left Atrium (MM)2.5 (1.6-4.0cm) LVDd4.1 (3.5-5.6cm)Aortic Root2.4 (2.0-3.7cm) PWd0.8 (0.7-1.1cm)Aortic Cusp Exc.1.7 (1.5-2.0cm) LVDs3.0 (2.5-4.0cm) PWs0.8 cm Normal left ventricular chamber size, systolic function and wall motion. Left ventricular ejection fraction estimated to be 55-60%. No evidence of left ventricular hypertrophy. Small anterior pericardial effusion. All other cardiac chamber sizes are within normal limits. Normal aortic valve with adequate cusp excursion. Normal mitral valve leaflets with normal excursion. Mild mitral annulus and aortic root calcification. Pulmonic valve is well visualized. Normal tricuspid valve structure. IVC is normal in size and collapsible with respiration. A color flow and spectral Doppler study was performed and revealed: No aortic regurgitation. No mitral regurgitation. Normal mitral diastolic function. Mild tricuspid regurgitation. Tricuspid systolic velocities suggests peak right ventricular systolic pressure of 21mmHg Pulmonic regurgitation present.
--- NOTE | 2017-08-27 13:30 | Progress Note ---
DATE: 08/27/2017 CARDIOLOGY PROGRESS NOTE SUBJECTIVE: No seizures. No shortness of breath. No chest pain. No palpitations. The patient is anxious to go home. Neurologic workup has been entirely negative. PHYSICAL EXAMINATION: VITAL SIGNS: Blood pressure 95/57, pulse 64, respiratory rate 20, afebrile. NECK: Supple. LUNGS: Clear. CARDIAC: Regular. Normal S1, S2 with no murmur. ABDOMEN: Soft. EXTREMITIES: No edema. IMPRESSION: 1. Single seizure likely associated with withdrawal of benzodiazepines in conjunction with Benadryl use. 2. Single episode of asymptomatic 2nd degree AV block, Type I; no obvious signs of structural heart disease. Recommend "bubble study" by 2D echo, to evaluate for intracardiac shunt. Otherwise outpatient follow up is appropriate. Chad Lentz M.D. DR: RERE JOB#: [id number] CC: ELMA
--- NOTE | 2017-08-27 13:51 | Cardiology Report ---
APPROVED REPORT EKG Measurement Heart [id number] VT [id number] Normal sinus rhythm Normal ECG
--- NOTE | 2017-08-27 13:57 | Cardiology Report ---
APPROVED REPORT EKG Measurement Heart [id number] 140P69 [id number] Normal sinus rhythm Rightward axis Borderline ECG
--- NOTE | 2017-08-29 10:57 | Discharge Summary ---
Discharge Summary Discharge Summary _ DATE OF ADMISSION: 08/25/2017 DATE OF DISCHARGE: 08/27/2017 REASON FOR ADMISSION: 21 years old female with past medical history significant for asthma and anxiety presented to emergency room for evaluation. Patient was brought by EMS post seizure episode. Seizure was witnessed at her home by her friend. Friend stated that she fell forward and was sitting on the floor, foaming at the mouth. The episode lasted about 1 minute. Patient initially was very confused , but upon arrival to ED was more awake and oriented. Patient denied prior history of seizure. Patient reported drinking alcohol and taking Benadryl. She denied any illicit drug use. Patient reported having a headache throbbing , 8 out of 10 ,nonradiating. She denied fever and chills ,she denied neck stiffness. Vital signs are stable. Laboratory workup was unremarkable. CT of the head revealed no acute intracranial abnormality. Urine tox screen was negative. Urinalysis revealed pyuria and positive for leukocytes esterase but only few bacteria. test was negative. EKG revealed normal sinus rhythm, no acute ischemic changes. Patient was admitted with diagnoses of new-onset of seizure, possible UTI, asthma. CONSULTANTS: single resource boss neurologist dr Rogers [facility] COURSE: Patient admitted to monitored floor. Seizure precaution were maintained. Patient was started on Keppra. Neurology consult was requested. EEG awake, drowsy and stage II sleep was normal. Neurologist seen and evaluated the patient. MRI of the brain revealed no acute intracranial pathology. Possible sinusitis. No further episodes of seizure. Neurologist discontinued Keppra, no indication to start patient on antiseizure medication at this time. Single episode of seizure was likely provoked due to the multitude of factors, including stopping use of Xanax, using alcohol and Benadryl simultaneously, having possible urinary tract infection and being under high amount of stress. Patient was instructed on the essential of seizure hygiene. While in telemetry floor, noted single episode of type I second-degree AV block. Patient was asymptomatic ,no chest pain or shortness of breath, no dizziness ,no palpitation. Repeated EKG revealed no evidence of block, initial EKG also revealed no evidence of block. Cardiology consult was requested. Echocardiogram revealed preserved ejection fraction 55-60%, no evidence of structural heart disease. Patient had no prior history of cardiac disease. Business Operations Manager recommended bubble study by 2-D echo to evaluate for possible intracardiac shunt. urine culture revealed Strep group B with small colony cont and mixed urogenital contaminants, likely asmrptomatic bacteriuria , no urinary complaints , Afebrile. Respiratory status was stable, pulse ox oximetry was stable on room air. No respiratory complaints. Patient was stable for discharge. FINAL DIAGNOSES: Single provoked seizure episode Single episode of type I second-degree AV block, asymptomatic Asthma Possible sinusitis DISCHARGE MEDICATIONS: See Medication Reconciliation list. DISCHARGE INSTRUCTIONS: Patient was discharged home ,outpatient follow-up with neurologist in 6-8 weeks. Patient was instructed on the essentials of seizure hygiene; sufficient sleep amount, regular times nutrition , avoid dehydration, avoid alcohol and illicit street drugs, take care of any infectious process as soon as possible I have been assigned to dictate discharge summary for this account. I was not involved in the patient's management. Esther Ball NP August 29, 2017 10:57
== END 2017-08-27 09:51 | disposition home or self-care (01) | DRG 101 ==
LOC: EDBD 21:26 → EMR 22:16 → 2E 08-25 00:45 → EDBEDREQ 08-25 01:00
DX: R56.9 Unspecified convulsions (principal); J45.909 Unspecified asthma, uncomplicated; F41.9 Anxiety disorder, unspecified; J32.9 Chronic sinusitis, unspecified; Z88.0 Allergy status to penicillin; I44.1 Atrioventricular block, second degree
CPT/HCPCS: 36415; 70450; 70553; 80053; 80299; 80307; 80329; 81003; 81025; 85025; 87086; 93005; 93306; 95819; 99285; A9585